=== PATIENT | female | born 1990 | race Caucasian/White ===

== ENCOUNTER 2017-01-05 05:21 | Emergency (ER) | payer MEDICAID, OTHER ==
[~2017-01-05] VITALS: Ht 167.6 cm; Wt 117.9 kg
[~2017-01-05 05:21] MED LIST: LEVO25TA7 PO
[2017-01-05 05:48] VITALS: BP 114/64
== END 2017-01-05 06:27 | disposition home or self-care (01) ==
LOC: ER 05:25
DX: O99.611 Diseases of the digestive system complicating pregnancy, first trimester (principal); K08.89 Other specified disorders of teeth and supporting structures; Z3A.08 8 weeks gestation of pregnancy; E03.8 Other specified hypothyroidism; F17.200 Nicotine dependence, unspecified, uncomplicated
CPT/HCPCS: 99283; A4606; Z7610

== ENCOUNTER 2017-01-07 23:47 | Emergency (ER) | payer MEDICAID ==
[~2017-01-07] VITALS: Ht 167.6 cm; Wt 117.9 kg
[2017-01-07 23:53] VITALS: BP 117/67
--- NOTE | 2017-01-08 00:05 | NUR ---
to bed 3 ambulatory c/o headache since 1800. pt aaox4 no acute distress noted, resp even and unlabored. pupils perrl, pt able to move all extremities well with bilateral equal cutter operator. pending er md mac.
--- NOTE | 2017-01-08 00:20 | NUR ---
started sl 18g to RAC.
[2017-01-08] MEDS ORDERED: METOCLOPRAMIDE HCL 10 MG/2 ML VIAL ONE (00:24)
[2017-01-08] MEDS ORDERED: IV NS 0.9% 1,000 ML BAG IV ONE (00:30)
[2017-01-08] MEDS ORDERED: METOCLOPRAMIDE HCL 10 MG/2 ML VIAL IV ONE (00:30)
--- NOTE | 2017-01-08 00:36 | NUR ---
pt medicated by rn per er md order.
--- NOTE | 2017-01-08 01:03 | NUR ---
Patient does not wish to proceed with medical care recommended by Dr. Bhat). Patient given information related to possible complications, up to and including , which could occur as a result of leaving the hospital at this time. Patient verbalizes understanding of risks involved due to leaving against medical advice. Patient has signed AMA form. Pt aaox4 no acute distress noted, resp even and unlabored. pt at bedside to take pt home. pt verbalize understanding. IV removed. Catheter intact and site benign. Pressure and 4x4 applied to site. No bleeding noted.
== END 2017-01-08 01:06 | disposition left against medical advice (07) ==
LOC: ER 23:55
DX: K08.89 Other specified disorders of teeth and supporting structures (principal); R51 Headache; E03.9 Hypothyroidism, unspecified; F17.200 Nicotine dependence, unspecified, uncomplicated
CPT/HCPCS: 96374; 99284; A4606; J2765; J7030 ×2; Z7610

== ENCOUNTER 2019-06-19 19:52 | Emergency (ER) | payer MEDICAID, OTHER ==
[~2019-06-19] VITALS: Ht 167.6 cm; Wt 117.9 kg
[2019-06-19 20:02] VITALS: BP 110/66
--- NOTE | 2019-06-19 20:10 | NUR ---
PT CAME INTO THE ED C/O R FLANK PAIN RADIATING TO THE MID EPIGASTRIC PAIN. PT AAOX4, VSS, BREATHING EVEN AND UNLABORED ON ROOM AIR W/ NAD NOTED. PT CONNECTED TO THE MONITOR AND POX.
[2019-06-19 20:36] LABS: APPEARANCE,URINE Slightly Cloudy (CLEAR); BILIRUBIN,URINE Negative (NEGATIVE); BLOOD, URINE Moderate Ery/uL (NEGATIVE); COLOR,URINE Yellow (YELLOW); KETONES,URINE Negative (NEGATIVE); LEUKOCYTE ESTERASE ,URINE Trace (NEGATIVE); NITRITE, URINE Negative (NEGATIVE); PROTEIN,URINE 30 mg/dl (NEGATIVE); UGLUCOSE Negative (NEGATIVE); UROBILINOGEN,URINE 0.2 EU/dL (0.2)
[2019-06-19] MEDS ORDERED: KETOROLAC TROMETHAMINE INJ 60 MG/2 ML VIAL IM ONE (20:51)
[2019-06-19] MEDS: KETOROLAC TROMETHAMINE INJ 60 MG/2 ML VIAL IM ONE (20:58)
[2019-06-19 21:06] LABS: BACTERIA,URINE Many /HPF (None Seen); SQUAMOUS EPITHELIAL CELL,UR Many /HPF (None Seen)
--- NOTE | 2019-06-19 21:17 | NUR ---
Patient discharged to home in stable condition. Written and verbal after care instructions given. Patient verbalizes understanding of instruction.
== END 2019-06-19 21:17 | disposition home or self-care (01) ==
LOC: ER 19:56
DX: N12 Tubulo-interstitial nephritis, not specified as acute or chronic (principal); E03.9 Hypothyroidism, unspecified; F17.200 Nicotine dependence, unspecified, uncomplicated; Z79.899 Other long term (current) drug therapy
CPT/HCPCS: 81001; 84703; 87077; 87086; 87186; 96372; 99283; J1885; 81000-TC

== ENCOUNTER 2020-04-30 20:12 | Emergency (ER) | payer OTHER ==
[~2020-04-30] VITALS: Ht 167.6 cm; Wt 120.2 kg
[2020-04-30] MEDS ORDERED: ONDANSETRON HCL/PF 4 MG/2 ML VIAL ONE (20:38)
--- NOTE | 2020-04-30 20:50 | NUR ---
US AT BEDSIDE
[2020-04-30 20:55] LABS: BILIRUBIN,URINE Negative (NEGATIVE); BLOOD, URINE Trace-lysed Ery/uL (NEGATIVE); COLOR,URINE YELLOW (YELLOW); LEUKOCYTE ESTERASE ,URINE Negative (NEGATIVE); NITRITE, URINE Negative (NEGATIVE); PROTEIN,URINE Negative (NEGATIVE); UGLUCOSE Negative (NEGATIVE); UROBILINOGEN,URINE 0.2 EU/dL (0.2)
[2020-04-30] MEDS ORDERED: ONDANSETRON HCL/PF 4 MG/2 ML VIAL IVP ONE (21:00)
[2020-04-30] MEDS ORDERED: IV NS 0.9% 1,000 ML BAG IV ONE (21:00)
--- NOTE | 2020-04-30 21:00 | NUR ---
HAT DESIGNER AT BEDSIDE FOR LABS
[2020-04-30 21:01] LABS: BACTERIA,URINE Rare /HPF (None Seen); SQUAMOUS EPITHELIAL CELL,UR Few /HPF (None Seen); WBC,URINE NONE SEEN /HPF (0-3)
--- NOTE | 2020-04-30 21:12 | NUR ---
RADIOLOGY AT BEDSIDE
[2020-04-30 21:39] LABS: CALCIUM, SERUM 8.3 mg/dL (8.5-10.1); CARBON DIOXIDE 31 mmol/L (21-32); CHLORIDE 102 mmol/L (98-107); GLUCOSE 92 mg/dL (74-106); POTASSIUM 3.7 mmol/L (3.5-5.1); SODIUM SERUM 139 mmol/L (136-145); UREA NITROGEN, BLOOD 11 mg/dL (7-18)
[2020-04-30 21:45] LABS: ALANINE AMINOTRANSFERASE 28 U/L (12-78); ALBUMIN 3.1 g/dL (3.4-5.0); ALKALINE PHOSPHATASE 97 U/L (46-116); ASPARTATE AMINOTRANSFERASE 15 U/L (15-37); BILIRUBIN,DIRECT 0.1 mg/dL (0.0-0.2); BILIRUBIN,TOTAL 0.2 mg/dL (0.2-1.0); LIPASE 62 U/L (73-393); TOTAL PROTEIN, SERUM 7.2 g/dL (6.4-8.2)
[2020-04-30 22:02] LABS: BASOPHILS # (AUTO) 0.6 /CMM (0.0-0.2); BASOPHILS % (AUTO) 3.3 % (0.0-2.0); EOSINOPHILS % (AUTO) 2.1 % (0.0-6.0); HEMATOCRIT 37 % (33-45); HEMOGLOBIN 11.6 g/dL (11.5-14.8); LYMPHOCYTES % (AUTO) 17.6 % (20.0-44.0); MEAN CORPUSCULAR HGB CONC 31 g/dl (31.0-36.0); MEAN CORPUSCULAR VOLUME 79 fL (82-100); MONOCYTES # (AUTO) 0.4 /CMM (0.1-1.30); MONOCYTES % (AUTO) 2.2 % (2.0-12.0); NEUTROPHILS # (AUTO) 12.8 /CMM (1.8-8.9); NEUTROPHILS % (AUTO) 74.8 % (43.0-81.0); PLATELET COUNT (AUTO) 277 /CMM (150-450); RED BLOOD CELL COUNT(AUTO) 4.66 MIL/uL (4.0-5.2); WHITE BLOOD COUNT (AUTO) 17.2 K/uL (4.3-11.0)
--- NOTE | 2020-04-30 22:04 | NUR ---
AMBULATED TO THE RESTROOM
--- NOTE | 2020-04-30 22:30 | NUR ---
PER PA, PT WILL STAY IN THE E.D. FOR A REPEAT TROP LEVEL AT 0000. PT RESTING IN BED COMFORTABLY. VSS.
--- NOTE | 2020-05-01 | NUR ---
CROWN CERAMIST AT BEDSIDE FOR SECOND TROP.
[2020-05-01 00:57] VITALS: BP 121/71
--- NOTE | 2020-05-01 00:57 | NUR ---
IV removed. Catheter intact and site benign. Pressure and 4x4 applied to site. No bleeding noted.
--- NOTE | 2020-05-01 00:57 | NUR ---
Patient discharged to home in stable condition. Written and verbal after care instructions given. Patient verbalizes understanding of instruction and RX. Pt ambulated with steady gait. vss.
== END 2020-05-01 00:58 | disposition home or self-care (01) ==
LOC: ER 20:14
DX: R07.2 Precordial pain (principal); E03.9 Hypothyroidism, unspecified; F17.210 Nicotine dependence, cigarettes, uncomplicated; E66.8 Other obesity; Z71.6 Tobacco abuse counseling; Z68.41 Body mass index [BMI] 40.0-44.9, adult; Z79.899 Other long term (current) drug therapy
CPT/HCPCS: 36415 ×2; 71045; 76705; 80048; 80076; 81001; 83690; 84484 ×2; 84703; 85025; 85378; 93005; 96361; 96374; 99285; J2405; J7030